=== PATIENT | female | born 1940 | race Caucasian/White ===

== ENCOUNTER 2024-08-27 20:46 | Emergency (ER) | payer MEDICARE ==
[2024-08-27] MEDS: Acetaminophen 325 MG Tab PO ONE (21:31)
== END 2024-08-27 22:33 | disposition home or self-care (01) ==
LOC: JP.ED 20:46
DX: S76.011A Strain of muscle, fascia and tendon of right hip, initial encounter (principal); I10 Essential (primary) hypertension; Z79.899 Other long term (current) drug therapy; X50.0XXA Overexertion from strenuous movement or load, initial encounter; Y93.89 Activity, other specified
CPT/HCPCS: 73502; 99283; A9270